=== PATIENT | male | born 1965 | race Caucasian/White ===

== ENCOUNTER 2021-11-26 08:56 | Day surgery (SDC) | payer BC ==
[2021-11-26 09:19] VITALS: BMI 34.5
[2021-11-26 10:38] VITALS: TEMP 97
[2021-11-26 11:04] VITALS: BP 116/63; PULSE 85
== END 2021-11-26 11:11 | disposition home or self-care (01) ==
LOC: FASU-ENDO 08:56
PROVIDERS: ATTEND Internal Medicine Gastroenterology
PROC: 0DBL8ZX Excision of Transverse Colon, Via Natural or Artificial Opening Endoscopic, Diagnostic (ICD-10-PCS; principal; 2021-11-26 10:04)
DX: Z12.11 Encounter for screening for malignant neoplasm of colon (principal); Z86.010 Personal history of colon polyps; D12.3 Benign neoplasm of transverse colon
CPT/HCPCS: 88305-TC